=== PATIENT | female | born 1970 | race Caucasian/White ===

== ENCOUNTER 2018-11-17 05:46 | Day surgery (SDC) | payer OTHER ==
[2018-11-17 06:57] LABS: ADD MAN DIFF? NO
[2018-11-17 06:58] LABS: BASOPHIL # 0.1 10^3/ul (0.0-0.1); BASOPHILS % 0.6 % (0.0-2.0); EOSINOPHILS # 0.2 10^3/ul (0.0-0.5); EOSINOPHILS % 1.7 % (0.0-7.0); HEMATOCRIT 37.7 % (37.0-47.0); LYMPHOCYTES # 2.3 10^3/ul (0.8-2.9); LYMPHOCYTES % 23.5 % (15.0-51.0); MEAN CORPUSCULAR HEMOGLOBIN 28.4 pg (29.0-33.0); MEAN CORPUSCULAR HGB CONC 31.8 g/dl (32.0-37.0); MEAN CORPUSCULAR VOLUME 89.1 fl (82.0-101.0); MEAN PLATELET VOLUME 10.1 fl (7.4-10.4); MONOCYTE # 1.2 10^3/ul (0.3-0.9); NEUTROPHILS % 61.7 % (39.0-77.0); PLATELET COUNT 256 10^3/UL (140-415); RED BLOOD COUNT 4.23 10^6/ul (4.20-5.40); RED CELL DISTRIBUTION WIDTH 15.1 % (11.5-14.5)
[2018-11-17 06:58] LABS: WHITE BLOOD COUNT 9.7 10^3/ul (4.8-10.8)
[2018-11-17] MEDS ORDERED: CEFAZOLIN 1 GM INJ (07:25)
[2018-11-17] MEDS ORDERED: GLYCOPYRROLATE 0.4 MG INJ (07:25)
[2018-11-17] MEDS ORDERED: PROPOFOL 20 ML (07:25)
[2018-11-17] MEDS ORDERED: NEOSTIGMINE 3 MG/3 ML SYRINGE (07:25)
[2018-11-17] MEDS ORDERED: ROCURONIUM 50 MG INJ (07:25)
[2018-11-17] MEDS ORDERED: DEXAMETHASONE 4 MG/ML 5 ML INJ (07:26)
[2018-11-17] MEDS ORDERED: ONDANSETRON 4 MG INJ (07:26)
[2018-11-17] MEDS ORDERED: MIDAZOLAM 1 MG/ML 2 ML INJ (07:26)
[2018-11-17] MEDS ORDERED: FENTAnyl 50 MCG/ML VIAL (07:26)
[2018-11-17] MEDS ORDERED: ROPIVACAINE 0.5 % 30 ML VIAL (07:26)
[2018-11-17] MEDS ORDERED: FENTAnyl 50 MCG/ML VIAL IV ×3 (07:30)
[2018-11-17] MEDS ORDERED: OXYCODONE/ACETAMINOPHEN (5/325) TAB PO ×2 (07:30)
[2018-11-17] MEDS ORDERED: TRIMETHOBENZAMIDE 100 MG/ML VIAL IM (07:30)
[2018-11-17] MEDS ORDERED: HYDROmorphONE 1 MG/5 ML IV SYRINGE IV ×3 (07:30)
[2018-11-17] MEDS ORDERED: MIDAZOLAM 1 MG/ML 2 ML INJ IV (07:30)
[2018-11-17] MEDS ORDERED: DIPHENHYDRAMINE 50 MG INJ IV (07:30)
[2018-11-17] MEDS ORDERED: hydrALAzine 20 MG INJ IV (07:30)
[2018-11-17] MEDS ORDERED: ALBUTEROL 0.083% (NEB) 2.5 MG/3 ML AMP HHN (07:30)
[2018-11-17] MEDS ORDERED: EPHEDrine SULFATE 50 MG/5 ML SYG IV (07:30)
[2018-11-17] MEDS ORDERED: LABETALOL HCL 20MG INJ IV (07:30)
[2018-11-17] MEDS ORDERED: IPRATROPIUM (NEB) 0.5 MG/2.5 ML AMP HHN (07:30)
[2018-11-17] MEDS ORDERED: MEPERIDINE 25 MG INJ IV (07:30)
[2018-11-17] MEDS ORDERED: ONDANSETRON 4 MG INJ IV (07:30)
[2018-11-17] MEDS ORDERED: KETOROLAC 30 MG INJ IV (08:00)
[2018-11-17] MEDS: NEOMYC/POLYMYX/BACIT 30 GM OINT (08:22)
[2018-11-17] MEDS: BUPIVACAINE 0.5% (SDV) 30 ML INJ (09:31)
[2018-11-17] MEDS ORDERED: LABETALOL HCL 20MG INJ (09:35)
[2018-11-17] MEDS ORDERED: morphine 2 MG INJ IV (16:01)
== END 2018-11-17 11:30 | disposition home or self-care (01) ==
LOC: SDS 05:46
DX: T84.84XD Pain due to internal orthopedic prosthetic devices, implants and grafts, subsequent encounter (principal); Y83.8 Other surgical procedures as the cause of abnormal reaction of the patient, or of later complication, without mention of misadventure at the time of the procedure; M65.872 Other synovitis and tenosynovitis, left ankle and foot
CPT/HCPCS: 20680; 73610; 82306; 82962; 85025; 88300